=== PATIENT | male | born 1975 | race Caucasian/White ===

== ENCOUNTER 2022-12-09 10:34 | Emergency (ER) | payer OTHER, SELFPAY ==
[2022-12-09 11:10] VITALS: BP 171/89; PULSE 84; RESP 16; TEMP 36.4; O2SAT 100
[2022-12-09 11:45] LABS: Basophils Absolute Auto 0.1 K/mm3 (0.0-0.1); Basophils Percent Auto 0.8 % (0.2-1.2); Eosinophils Absolute Auto 0.1 K/mm3 (0-0.3); Eosinophils Percent Auto 1.1 % (0-4.4); Hematocrit 45.6 % (42.0-52.0); Hemoglobin 15.3 g/dL (14.0-18.0); Immature Granulocyte Absolute 0.02 K/mm3 (0.00-0.031); Immature Granulocyte Percent A 0.3 % (0-0.5); Lymphocytes Absolute Auto 1.53 K/mm3 (0.9-3.2); Lymphocytes Percent Auto 23.4 % (18.3-44.2); Mean Corpuscular HGB Conc 33.6 g/dl (32-36); Mean Corpuscular Hemoglobin 29.5 pg (26-34); Mean Corpuscular Volume 87.9 fl (80-100); Mean Platelet Volume 9.5 fl (7.4-10.4); Monocytes Absolute Auto 0.5 K/mm3 (0.1-0.6); Monocytes Percent Auto 8.2 % (2.6-8.5); Neutrophils Absolute Auto 4.3 K/mm3 (1.3-6.7); Neutrophils Percent Auto 66.2 % (45.5-73.1); Platelet Count Result 225 k/mm3 (150-375); Red Blood Count 5.19 M/mm3 (4.6-6.20); Red Cell Distribution Width 12.7 % (11.5-14.5); White Blood Count 6.6 K/mm3 (4.5-10.0)
[2022-12-09 11:58] LABS: Alanine Aminotransferase 25 U/L (6-50); Albumin Level 5.1 g/dL (3.5-5.1); Alkaline Phosphatase 109 U/L (38-126); Anion Gap 12 mmol/L (8-16); Aspartate Amino Transferase 24 U/L (17-59); Bilirubin,Total 1.4 mg/dL (0.2-1.3); Blood Urea Nitrogen 12 mg/dL (9-20); Calcium 9.4 mg/dL (8.4-10.2); Carbon Dioxide 25 mmol/L (22-30); Chloride 103 mmol/L (98-107); Estimated CRCL calculation 149 ml/min; Estimated Glomerular Filt Rate > 60; Glucose 113 mg/dL (65-110); Lipase 85 U/L (23-300); Sodium 140 mmol/L (137-145)
[2022-12-09 13:48] LABS: Appearance Urine Clear (Clear); Bilirubin Urine Negative (Negative); Blood Urine Negative (Negative); Color Urine Yellow (Yellow); Glucose Urine UA Negative (Negative); Ketones Urine 3+ mg/dL (Negative); Leukocyte Esterase Ur Negative LEU/UL (Negative); Nitrate Urine Negative (Negative); Protein Urine Negative (Negative); Specific Grav Ur 1.013 (1.001-1.035); pH Urine 5.5 (5.0-9.0)
[2022-12-09 13:52] LABS: Add Urine Microscopic? NO
[2022-12-09 14:50] VITALS: BP 148/98; PULSE 72; RESP 18; TEMP 36.6; O2SAT 99
--- NOTE | 2022-12-09 15:54 | ED.NAVMDI ---
HPI - Nausea/Vomiting/Diarrhea General Chief complaint: Nausea/Vomiting/Diarrhea Stated complaint: nausea x several weeks Time Seen by Provider: 12/09/22 15:19 History of Present Illness HPI Narrative: Patient is a 47-year-old male here for evaluation of nausea for the past year and a half. Patient states that throughout the day he feels nauseated and sick to his stomach. No obvious trigger for his nausea. The symptoms have been making him very anxious and he states that his anxiety has made it difficult to function at times. He has seen his primary care doctor for this issue in [place], had a full laboratory panel ordered including H. pylori which have all been reassuring. He had a negative right upper quadrant ultrasound. He was placed on antidepressants because his primary doctor thought that his anxiety was contributing to his symptoms which he states has not really helped. He denies any suicidal or homicidal ideation. Related Data Allergies Allergy/AdvReac Type Severity Reaction Status Date / Time No Known Allergies Allergy Verified 12/09/22 10:35 Review of Systems Review of Systems: Gen: Denies fevers or chills Eyes: Denies eye pain or visual change ENT: Denies congestion Respiratory: Denies shortness of breath or cough CV: Denies chest pain or palpitations GI: Reports nausea : denies burning, urgency, frequency or hematuria Musculoskeletal: Denies back pain or muscle pain Neuro: Denies numbness, tingling, weakness or focal weakness Skin: Denies rash Except as documented, all other systems reviewed and negative Exam Narrative: APPEARANCE: Anxious appearing. No pain or distress, well-nourished. Head: Normocephalic and atraumatic. EYES: PERRLA/EOMI, conjunctivae clear NOSE: No nasal drainage EARS: External ear normal in appearance THROAT: Oropharynx is clear. Mucous membranes are moist. NECK: Supple. No adenopathy, no masses. RESPIRATORY: Airway patent, respirations nonlabored. Clear to auscultation bilaterally, no rales, rhonchi, wheezing. CARDIOVASCULAR: Regular rate and rhythm without murmurs, rubs, or gallops. ABDOMINAL: No abdominal tenderness on exam. Normoactive bowel sounds. Soft, nondistended. No rebound tenderness or guarding. MUSCULOSKELETAL: Extremities are warm and well-perfused. Moves all extremities well. No edema. NEURO: Normal speech. No focal neurologic deficits. SKIN: Skin is warm and dry. No rashes. PSYCHIATRIC: Anxious mood. Course Vital Signs Vital signs: Vital Signs Temperature 97.5 F L 12/09/22 11:10 Pulse Rate 84 12/09/22 11:10 Respiratory Rate 16 12/09/22 11:10 Blood Pressure 171/89 H 12/09/22 11:10 Pulse Oximetry 100 12/09/22 11:10 Oxygen Delivery Room Air 12/09/22 11:10 Temperature 97.8 F 12/09/22 14:50 Pulse Rate 72 12/09/22 14:50 Respiratory Rate 18 12/09/22 14:50 Blood Pressure 148/98 H 12/09/22 14:50 Pulse Oximetry 99 12/09/22 14:50 Oxygen Delivery Room Air 12/09/22 11:10 MDM - Nausea/Vomiting/Diarrhea MDM Narrative Medical decision making narrative: 47-year-old male here for evaluation of chronic nausea that has been attributed to anxiety in the past, coming into the ED today due to increased nausea. Patient is nontoxic in appearance and has normal vital signs. He has no abdominal tenderness on exam. Basic labs unremarkable, lipase is normal. He is not suicidal or homicidal requiring inpatient admission at this time. He has no abdominal tenderness on exam to suggest need for emergent imaging. Highly suspect psychiatric component to his symptoms. Had a Long discussion with patient about options and dispo, he is agreeable with plan for outpatient follow-up. Provided with resources for mental health professionals. Will use hydroxyzine as needed for anxiety and Zofran for nausea in the meantime. Lab Data 12/09/22 11:37 12/09/22 11:37 Labs: Lab Results 12/09/22 12/09/22 12/09/22 Range/Units 11
[2022-12-09 16:38] VITALS: BP 148/82; PULSE 78; RESP 16
== END 2022-12-09 16:38 | disposition home or self-care (01) ==
PROVIDERS: Emergency Medicine; Emergency Provider Physician Assistant
DX: K58.9 Irritable bowel syndrome, unspecified (principal)
CPT/HCPCS: 36415; 80053; 81003; 83690; 85025; 99283